=== PATIENT | female | born 1990 | race Caucasian/White ===

== ENCOUNTER 2017-07-05 08:10 | Day surgery (SDC) | payer OTHER ==
[~2017-07-05 08:10] MED LIST: ATROPINE 1 MG/10 ML SYRINGE IV; DIPHENHYDRAMINE 50 MG INJ IV; EPHEDrine SULFATE 50 MG/5 ML SYG IV; FENTAnyl 50 MCG/ML VIAL IV; HYDROmorphONE (0.2 MG/ML) 10ML SYG IV; LABETALOL HCL 20MG INJ IV; LIDOCAINE 2% (SDV) 5 ML INJ; MEPERIDINE 25 MG INJ IV; MIDAZOLAM 1 MG/ML 2 ML INJ IV; OXYCODONE/ACETAMINOPHEN (5/325) TAB PO; PROPOFOL 200 MG INJ; hydrALAzine 20 MG INJ IV; morphine (1 MG/ML) 10ML SYRINGE IV
[2017-07-05] MEDS ORDERED: POVIDONE IODINE 10% 28.4 GM OINT (09:38)
[2017-07-05] MEDS ORDERED: LIDOCAINE 1% (MPF) 10 ML INJ (09:38)
[2017-07-05] MEDS ORDERED: DEXAMETHASONE 4 MG/ML 1 ML INJ (09:40)
[2017-07-05] MEDS ORDERED: ONDANSETRON 4 MG INJ ×2 (09:40→10:26)
[2017-07-05] MEDS ORDERED: LIDOCAINE 1% (MPF) 30 ML INJ (09:54)
[2017-07-05] MEDS: LIDOCAINE 1% (MDV) 20 ML INJ INJ (10:01)
[2017-07-05] MEDS: HYDROmorphONE (0.2 MG/ML) 10ML SYG IV (10:50)
[2017-07-05] MEDS: ONDANSETRON 4 MG INJ IV (10:53)
== END 2017-07-05 11:55 | disposition home or self-care (01) ==
LOC: SDS 08:10
DX: L60.0 Ingrowing nail (principal); E66.01 Morbid (severe) obesity due to excess calories; Z68.43 Body mass index [BMI] 50.0-59.9, adult
CPT/HCPCS: 11750; 84703

== ENCOUNTER 2017-10-11 06:19 | Day surgery (SDC) | payer OTHER ==
[2017-10-11] MEDS ORDERED: CEFAZOLIN 1 GM INJ (07:00)
[2017-10-11] MEDS ORDERED: CEFAZOLIN 2 GM/50 ML (PMX) 50 ML IVPB (07:00)
[2017-10-11] MEDS ORDERED: SOD CHLORIDE 0.9% 1,000 ML IV (07:00)
[2017-10-11] MEDS ORDERED: LIDOCAINE 2% (SDV) 5 ML INJ (07:00)
[2017-10-11] MEDS ORDERED: BUPIVACAINE 0.5% (SDV) 30 ML INJ (07:46)
[2017-10-11] MEDS ORDERED: LIDOCAINE 2% (MDV) 20 ML INJ (07:46)
[2017-10-11] MEDS ORDERED: PROPOFOL 100 ML (08:02)
[2017-10-11] MEDS ORDERED: FENTAnyl 50 MCG/ML VIAL ×2 (08:03→08:23)
[2017-10-11] MEDS ORDERED: DEXAMETHASONE 4 MG/ML 1 ML INJ ×2 (08:06→08:17)
[2017-10-11] MEDS ORDERED: ONDANSETRON 4 MG INJ (08:19)
[2017-10-11] MEDS: BUPIVACAINE 0.25% (MPF) 30 ML INJ (08:45)
[2017-10-11] MEDS ORDERED: HYDROmorphONE (0.2 MG/ML) 10ML SYG IV ×3 (09:00)
[2017-10-11] MEDS ORDERED: KETOROLAC 30 MG INJ IV (09:00)
[2017-10-11] MEDS ORDERED: ALBUTEROL 0.083% (NEB) 2.5 MG/3 ML AMP HHN (09:00)
[2017-10-11] MEDS ORDERED: FENTAnyl 50 MCG/ML VIAL IV (09:00)
[2017-10-11] MEDS ORDERED: hydrALAzine 20 MG INJ IV (09:00)
[2017-10-11] MEDS ORDERED: ONDANSETRON 4 MG INJ IV (09:00)
[2017-10-11] MEDS ORDERED: MIDAZOLAM 1 MG/ML 2 ML INJ IV (09:00)
[2017-10-11] MEDS ORDERED: EPHEDrine SULFATE 50 MG/5 ML SYG IV (09:00)
[2017-10-11] MEDS ORDERED: DIPHENHYDRAMINE 50 MG INJ IV (09:00)
[2017-10-11] MEDS ORDERED: LABETALOL HCL 20MG INJ IV (09:00)
[2017-10-11] MEDS ORDERED: OXYCODONE/ACETAMINOPHEN (5/325) TAB PO (09:00)
[2017-10-11] MEDS: FENTAnyl 50 MCG/ML VIAL IV ×2 (09:04→09:15)
[2017-10-11] MEDS: MEPERIDINE 25 MG INJ IV (09:15)
[2017-10-11] MEDS: OXYCODONE/ACETAMINOPHEN (5/325) TAB PO (09:56)
[2017-10-11] MEDS: HYDROCODONE/APAP (5/325) TAB PO (10:00)
== END 2017-10-11 10:40 | disposition home or self-care (01) ==
LOC: SDS 06:19
DX: D17.22 Benign lipomatous neoplasm of skin and subcutaneous tissue of left arm (principal); E66.01 Morbid (severe) obesity due to excess calories; Z68.43 Body mass index [BMI] 50.0-59.9, adult
CPT/HCPCS: 14021; 88307

== ENCOUNTER 2017-10-19 11:33 | Emergency (ER) | payer OTHER | END 2017-10-19 11:59 | disposition home or self-care (01) | LOC: FTE 11:33 → E/R 11:59 | DX: L03.114 Cellulitis of left upper limb (principal); Y82.8 Other medical devices associated with adverse incidents | CPT/HCPCS: 99284 ==

== ENCOUNTER 2018-09-15 19:31 | Emergency (ER) | payer OTHER | END 2018-09-15 20:47 | disposition home or self-care (01) | LOC: E/R 20:47 | DX: L03.113 Cellulitis of right upper limb (principal) | CPT/HCPCS: 99283 ==